=== PATIENT | male | born 1980 ===

== ENCOUNTER 2022-05-05 19:08 | Emergency (ER) | payer MEDICARE, OTHER ==
[2022-05-05 19:21] VITALS: RESP 18; TEMP 97.2
[2022-05-05] MEDS ORDERED: MORPHINE SULFATE 4 MG/ML SYRINGE IM STA (19:21)
[2022-05-05] MEDS ORDERED: KETOROLAC 15 MG/ML 1 ML VIAL IM STA (19:21)
--- NOTE | 2022-05-05 19:35 | ED ---
General Adult HPI - General Chief complaint: Extremity Injury, Upper Stated complaint: dislocated shoulder Time Seen by Provider: 05/05/22 19:16 Source: patient, EMS, RN notes reviewed, old records reviewed Mode of arrival: EMS Limitations: no limitations - History of Present Illness Initial comments: 41-year-old male presents for evaluation of right shoulder injury. Patient was throwing football, had sudden pain and its inability to move the right shoulder. He has a previous history of recurrent shoulder dislocation and did have surgery on his shoulder in the remote past. He was throwing a football. There was no other injury. - Related Data Allergies Allergy/AdvReac Type Severity Reaction Status Date / Time No Known Allergies Allergy Verified 05/05/22 20:28 Review of Systems ROS Statement: Those systems with pertinent positive or pertinent negative responses have been documented in the HPI. ROS Other: All systems not noted in ROS Statement are negative. Past Medical History Past Medical History: No Reported History History of Any Multi-Drug Resistant Organisms: None Reported Past Surgical History: Orthopedic Surgery Past Psychological History: ADD/ADHD, Anxiety, Bipolar, Depression Smoking Status: Never smoker Past Alcohol Use History: None Reported Past Drug Use History: Prescription Drug Abuse General Exam Limitations: no limitations General appearance: alert, in no apparent distress Head exam: Present: atraumatic, normocephalic Eye exam: Present: normal appearance, PERRL ENT exam: Present: normal exam Neck exam: Present: normal inspection. Absent: tenderness, meningismus Respiratory exam: Present: normal lung sounds bilaterally. Absent: respiratory distress, wheezes Cardiovascular Exam: Present: regular rate, normal rhythm GI/Abdominal exam: Present: soft. Absent: distended, tenderness Extremities exam: Present: tenderness, other (Right shoulder deformity, distal pulses intact, normal sensation). Absent: full ROM, joint swelling Course Vital Signs 05/05/22 05/05/22 05/05/22 19:15 20:24 20:30 Temperature 97.2 F L Pulse Rate 89 64 70 Respiratory 18 18 18 Rate Blood Pressure 140/94 122/82 126/87 O2 Sat by Pulse 97 99 98 Oximetry 05/05/22 20:35 Temperature Pulse Rate 63 Respiratory 18 Rate Blood Pressure 131/91 O2 Sat by Pulse 97 Oximetry Procedures - Orthopedic Joint Reduction Joint #1 Consent Obtained: written consent Side: right Joint Reduction Location: shoulder Analgesia: procedural sedation Shoulder Technique Used (if applicable): external rotation Technique Used: traction/counter-traction Post-Reduction Neuro Exam: intact Post-Reduction Vascular Exam: intact Post Reduction X-Ray Obtained: Yes Post Reduction X-Ray Results: reduced Splint Applied: Yes Patient Tolerated Procedure: well - Procedural Sedation Procedural Sedation Start Time: 20:25 Procedural Sedation Stop Time: 21:10 Indications: fracture/dislocation reduction ASA Class: I Mallampati Airway Score: 2 Preparation: nurse monitoring applied, pulse oximeter, capnometry used, supplemental O2 applied, suction/airway equipment at bedside, IV secured IV Propofol Dose (mgs): 100 Complications: none Interventions: oxygen applied Patient Tolerated Procedure: well Medical Decision Making - Medical Decision Making 41-year-old male with previous history of recurrent shoulder dislocation presents with right shoulder dislocation. Initial x-ray shows anterior shoulder dislocation. Patient is sedated with propofol, and reduction is achieved with repeat x-rays confirming satisfactory reduction. Patient placed in a sling and given orthopedic follow-up. Disposition Clinical Impression: Shoulder dislocation Disposition: HOME SELF-CARE Condition: Good Instructions (If sedation given, give patient instructions): Shoulder Dislocation (ED) Is patient prescribed a controlled substance at d/c from ED?: No Referrals: None,Stated [Primary Care Provider] - 1-2 days Jamie Rahman DO [Doctor of Osteopathic Medicine] - 1-2 days Time of Disposition: 21:20
[2022-05-05] MEDS ORDERED: PROPOFOL 10 MG/ML 20 ML VIAL IV STA (20:01)
[2022-05-05] MEDS ORDERED: SODIUM CHLORIDE 0.9% 1,000 ML IV ONE (20:01)
--- NOTE | 2022-05-05 20:03 | XR ---
EXAMINATION TYPE: XR shoulder limited RT DATE OF EXAM: 05/05/2022 7:37 PM INDICATION: Patient age:Male; 41 years old; Reason for study: pain; COMPARISON: None TECHNIQUE: The right shoulder was examined in AP and scapular Y projections. . FINDINGS: Anterior inferior shoulder dislocation. No definitive fracture identified. Soft tissues grossly intac t. The lungs are unremarkable. IMPRESSION: Anterior inferior shoulder dislocation. No fracture definitely visualized.
--- NOTE | 2022-05-05 20:52 | XR ---
EXAMINATION TYPE: XR shoulder limited RT DATE OF EXAM: 05/05/2022 8:36 PM INDICATION: Patient age:Male; 41 years old; Reason for study: Post reduction; COMPARISON: Same day radiograph. TECHNIQUE: The right shoulder was examined in frontal and scapular Y projections. . 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 IMPRESSION: Reduced right anterior inferior shoulder is present without evidence of fracture.
[2022-05-05 21:45] VITALS: BP 113/86; PULSE 67
== END 2022-05-05 21:44 | disposition home or self-care (01) ==
LOC: EC 19:08
DX: S43.004A Unspecified dislocation of right shoulder joint, initial encounter (principal); X50.9XXA Other and unspecified overexertion or strenuous movements or postures, initial encounter; Y93.61 Activity, american tackle football; Y92.321 Football field as the place of occurrence of the external cause
CPT/HCPCS: 99283; 96374; 96375; 73020; 23650; J2270; J1885; J2704